=== PATIENT | female | born 1955 | race Caucasian/White ===

== ENCOUNTER 2016-07-28 10:40 | Outpatient (CLI) | payer BC ==
--- NOTE | 2016-08-01 18:17 | Mammography Report ---
DIGITAL SCREENING MAMMOGRAM: 07/28/2016 CLINICAL INDICATION: A 61-year-old with family history of breast cancer, history of bilateral implan ts for screening. COMPARISON: 07/2015, 06/2014, 06/2012, 08/2007. TECHNIQUE: Routine CC and MLO projections as well as bilateral implant displaced views were obtained of the breasts. The breasts again demonstrate scattered fibroglandular densities bilaterally. Bilateral subpectoral silicone implants are stable. No suspicious masses, clustered microcalcifications, or regions of arc hitectural distortion are identified. IMPRESSION: BENIGN FINDINGS. RECOMMENDATION: ROUTINE ANNUAL SCREENING UNLESS OTHERWISE CLINICALLY INDICATED. BIRADS CATEGORY: 2, BENIGN FINDINGS. STANDARD QUALIFYING STATEMENTS 1. This examination was reviewed with the aid of Computed-Aided Detection (CAD). 2. A negative or benign imaging report should not delay biopsy if clinically suspicious findings are present. Consider surgical consultation if warranted. More than 5% of cancers are not identified b y imaging. 3. Dense breasts may obscure an underlying neoplasm. JOB #: [id number] EXT JOB #:[id number]
== END 2016-07-28 10:41 | disposition home or self-care (01) ==
LOC: DI.S 10:40
PROVIDERS: ATTEND Family Medicine
DX: Z12.31 Encounter for screening mammogram for malignant neoplasm of breast (principal); Z80.3 Family history of malignant neoplasm of breast
CPT/HCPCS: 77067

== ENCOUNTER 2018-07-10 13:13 | Outpatient (CLI) | payer BC ==
--- NOTE | 2018-07-11 09:23 | Mammography Report ---
Reason: SCREENING MAMMO Procedure Date: 07/10/2018 Accession Number: [id number] / [id number] Procedure: CLAY - Screening Mammo Impl w/True CPT Code: FULL RESULT: EXAM: Screening Mammo Impl w/True DATE: 07/10/2018 2:17 PM CLINICAL HISTORY: Screening encounter. Family history of breast cancer in a sister at the age of 54, a maternal aunt at the age of 45 as well as a paternal aunt. History of bilateral silicone type breast implant. TECHNIQUE: (B) - Bilateral CC and MLO views were obtained. Images are obtained in standard and implant displaced technique for each view. COMPARISON: 07/28/2016 through 06/10/2012 PARENCHYMAL PATTERN: (A) - The breast(s) demonstrate(s) scattered fibroglandular densities. FINDINGS: Bilateral breast implants are redemonstrated with pericapsular calcifications, typically benign. There are no suspicious masses, calcifications, or areas of distortion. IMPRESSION: Benign findings. BI-RADS category 2. RECOMMENDATION: (ANNUAL) - Recommend routine annual screening mammography. BI-RADS CATEGORY: (2) - Benign Findings. STANDARD QUALIFYING STATEMENTS: 1. This examination was not reviewed with the aid of Computer-Aided Detection (CAD). 2. A negative or benign imaging report should not preclude biopsy if clinically suspicious findings are present. 3. Dense breasts may obscure an underlying neoplasm. 4. This examination was reviewed with the aid of 3D breast imaging (tomosynthesis).
== END 2018-07-10 13:14 | disposition home or self-care (01) ==
LOC: DI 13:13
PROVIDERS: ATTEND Family Medicine
DX: Z12.31 Encounter for screening mammogram for malignant neoplasm of breast (principal)
CPT/HCPCS: 77063; 77067

== ENCOUNTER 2019-09-23 11:39 | Outpatient (CLI) | payer BC | END 2019-09-23 11:40 | disposition home or self-care (01) | LOC: COV 11:39 | PROVIDERS: ATTEND Family Medicine | DX: M79.10 Myalgia, unspecified site (principal); R53.83 Other fatigue; R68.83 Chills (without fever) ==

== ENCOUNTER 2019-10-24 09:00 | Outpatient (CLI) | payer BC | END 2019-10-24 09:01 | disposition home or self-care (01) | LOC: COV 09:00 | PROVIDERS: ATTEND Family Medicine | DX: R50.9 Fever, unspecified (principal); M79.10 Myalgia, unspecified site; R53.83 Other fatigue; R07.0 Pain in throat; Z20.828 Contact with and (suspected) exposure to other viral communicable diseases ==

== ENCOUNTER 2021-06-29 11:37 | Outpatient (CLI) | payer BC ==
[2021-06-29 15:09] LABS: HCT - HEMATOCRIT 36.6 % (37.0-47.0); HGB - HEMOGLOBIN 12.2 g/dL (12.0-16.0); MEAN CORPUSCULAR HEMOGLOBIN 33.5 pg (27.0-31.0); MEAN CORPUSCULAR HGB CONC 33.3 g/dL (32.0-36.0); MEAN CORPUSCULAR VOLUME 100.5 fL (81.0-99.0); MEAN PLATELET VOLUME 9.6 fL (7.9-10.8); RED BLOOD COUNT 3.64 10^6/uL (4.20-5.40)
[2021-06-29 15:30] LABS: ALBUMIN/GLOBULIN RATIO 1.5 (1.0-2.2); ALKALINE PHOSPHATASE 58 IU/L (42-121); ALT ALANINE AMINOTRANSFERASE 18 IU/L (10-60); AST ASPARTATE AMINOTRANSFERASE 23 IU/L (10-42); BILIRUBIN,TOTAL 0.8 mg/dL (0.2-1.0); BUN - BLOOD UREA NITROGEN 17 mg/dL (6-20); CALCIUM 9.3 mg/dL (8.5-10.3); CARBON DIOXIDE - CO2 26 mmol/L (21-32); CHLORIDE 103 mmol/L (101-111); CHOL/HDL RATIO 3.8 (<4.4); CHOLESTEROL 259 mg/dL; CREATININE 0.6 mg/dL (0.4-1.0); GFR - MDRD 100 (>89); GLUCOSE 96 mg/dL (70-100); HDL CHOLESTEROL 69 mg/dL; LDL CHOLESTEROL,CALCULATED 169 mg/dL; LDL/HDL RATIO 2.4 (<4.4); POTASSIUM 4.1 mmol/L (3.5-5.0); SODIUM 137 mmol/L (135-145); TOTAL PROTEIN 6.7 g/dL (6.7-8.2); TRIGLYCERIDES 106 mg/dL; VLDL CHOLESTEROL 21 mg/dL
== END 2021-06-29 11:38 | disposition home or self-care (01) ==
LOC: LAB.S 11:37
PROVIDERS: ATTEND Nurse Practitioner Family
DX: F41.9 Anxiety disorder, unspecified (principal); E78.5 Hyperlipidemia, unspecified
CPT/HCPCS: 36415; 80053; 80061; 83721; 84443; 85027

== ENCOUNTER 2021-07-05 10:48 | Outpatient (CLI) | payer BC ==
--- NOTE | 2021-07-05 11:59 | DEXA Report ---
PROCEDURE: Dexa Spine and/or Hip INDICATIONS: POST MENOPAUSAL TECHNIQUE: Dual energy x-ray absorptiometry (DXA) was performed on a [employer] System. Regions measur ed are the AP Spine, femoral neck, and if needed forearm. COMPARISON: None. FINDINGS: Lumbar Spine: Bone Mineral Density 1.247 g/cm/cm,T score 0.6, normal Right Hip: Bone Mineral Density 0.885 g/cm/cm,T score -1.0, normal. Right Femoral Neck: Bone Mineral Density 0.816 g/cm/cm, T score -1.6, osteopenic. (T score greater or equal to -1.0: NORMAL) (T score from -1.1 to -2.4: OSTEOPENIA) (T score less than or equal to -2.5 to: OSTEOPOROSIS) Impression: Based on WHO criteria, the patient is osteopenic. Patients with diagnosis of osteoporosis or osteopenia should have regular bone mineral density assess ment. For those eligible for Medicare, routine testing is allowed once every 2 years. Testing frequ ency can be increased for patients who have rapidly progressing disease or for those who are receivin g medical therapy to restore bone mass. Reviewed by: Libra Fisher MD on 07/05/2021 11:58 AM PDT Approved by: Libra Fisher MD on 07/05/2021 11:58 AM PDT Station ID: [id number]
== END 2021-07-05 10:49 | disposition home or self-care (01) ==
LOC: DI 10:48
PROVIDERS: ATTEND Nurse Practitioner Family
DX: Z78.0 Asymptomatic menopausal state (principal); M85.88 Other specified disorders of bone density and structure, other site

== ENCOUNTER 2021-09-14 09:46 | Outpatient (CLI) | payer BC ==
--- NOTE | 2021-09-15 12:29 | Mammography Report ---
BILATERAL DIGITAL SCREENING MAMMOGRAM 3D/2D WITH AUGMENTATION: 09/14/2021 CLINICAL: Routine screening. Family history of breast cancer. Comparison is made to exams dated: 07/10/2018 mammogram, 07/28/2016 mammogram, 07/07/2015 mammogram, and 06/10/2014 mammogram - [facility]. There are scattered fibroglandular elements in mark th breasts. Bilateral breast implants are present and appear intact. No significant masses, calcifications, or other findings are seen in either breast. Interval increase in dense dystrophic implant capsular calcifications. IMPRESSION: NEGATIVE There is no mammographic evidence of malignancy. A 1 year screening mammogram is recommended. Based on the Tyrer Cuzick model (a risk assessment model) the patients lifetime risk is 8.8% and her 10 year risk is 4.6%. According to the ACR, ACS, and NCCN guidelines, an annual breast MRI exam bonifacio g with mammogram is recommended if the patients lifetime risk is 20% or greater. This exam was interpreted at Station ID: [id number]. NOTE: For mammograms, a report in lay terms will be sent to the patient. Approximately 15% of breast malignancies will not be visualized mammographically. In the management of a palpable breast mass, a negative mammogram must not discourage biopsy of a clinically suspicious lesion. Electronically Signed By: Cristian Moreno M.D. aty/:09/14/2021 16:29:29 ACR BI-RADS Category 1: Negative 3341F B -Scattered fibroglandular 1 Mammogram [id number] 1 year screening B
== END 2021-09-14 09:47 | disposition home or self-care (01) ==
LOC: DI.S 09:46
PROVIDERS: ATTEND Nurse Practitioner Family
DX: Z12.31 Encounter for screening mammogram for malignant neoplasm of breast (principal); Z80.3 Family history of malignant neoplasm of breast; Z98.82 Breast implant status

== ENCOUNTER 2023-09-04 08:12 | Outpatient (CLI) | payer BC ==
--- NOTE | 2023-09-04 14:16 | Ultrasound Report ---
PROCEDURE: Soft Tissue Head or Neck INDICATIONS: LESION SUBMENTAL CHIN TECHNIQUE: Soft tissue ultrasound at the submental area of concern was obtained COMPARISON: None FINDINGS: Anterior concern, there is a small hypoechoic subcutaneous nodule with internal vascularity and ovoid shape measuring 1.3 x 0.6 x 0.4 cm IMPRESSION: Small ovoid subcutaneous nodule may reflect small lymph node, and may be followed clinically. Follow- up imaging would include CT neck with contrast if/when warranted. Reviewed by: Max Ibarra MD on 09/04/2023 1:15 PM AKBRENDA Approved by: Max Ibarra MD on 09/04/2023 1:15 PM AKBRENDA Station ID: [id number]
== END 2023-09-04 08:13 | disposition home or self-care (01) ==
LOC: DI 08:12
PROVIDERS: ATTEND Internal Medicine
DX: L98.9 Disorder of the skin and subcutaneous tissue, unspecified (principal)

== ENCOUNTER 2023-11-16 13:16 | Outpatient (CLI) | payer BC ==
[2023-11-16] MEDS ORDERED: iohexoL-300 100 ML VIAL ONE (13:36)
[2023-11-16] MEDS: iohexoL-300 100 ML VIAL IVP ONE (17:51)
--- NOTE | 2023-11-16 18:44 | CT Report ---
PROCEDURE: Soft Tissue Neck W INDICATIONS: FACIAL MASS CONTRAST: omni, 100 TECHNIQUE: After the administration of intravenous contrast, 3.0 mm axial sections acquired from the sella to th e aortic arch. Additional oblique axial 3.0 mm sections acquired through the pharynx. 3 mm thick co jaz reformats were generated. For radiation dose reduction, the following was used: automated exp osure control, adjustment of mA and/or kV according to patient size. COMPARISON: Ultrasound 09/04/2023. FINDINGS: Image quality: Excellent. Lymph nodes: No enlarged lymph nodes seen throughout the neck. Vessels: Visualized vasculature appears patent. Neck spaces: The oropharynx, nasopharynx, and pharynx demonstrate no mucosal lesions. The vocal cor ds, false vocal cords, pyriform sinuses, epiglottis, vallecula, and tongue base all appear normal. E xtramucosal spaces appear unremarkable. Glands: The parotid and submandibular glands appear normal. The thyroid is normal in size and there are no findings requiring additional follow-up. Miscellaneous: Visualized brain and orbits appear normal. Lung apices appear clear. Superficial so ft tissues demonstrate mild appearance of stranding within the submental region. 4 mm soft tissue den sity is present. Bones: No suspicious bony lesions. Visualized sinuses and mastoids appear unremarkable. IMPRESSION: 4 mm soft tissue density within the submental region corresponding to ultrasound abnormality. It is t oo small to definitively characterize. This could represent a lymph node in the setting of inflammati on given mild fat stranding within this region. Interval follow-up is recommended as indicated. CLINICAL RECOMMENDATION STATEMENTS: In patients <35 years with an ITN detected on CT, MRI, or extrathyroidal ultrasound, the Committee re commends further evaluation with dedicated thyroid ultrasound if the nodule is "e1 cm and has no susp icious imaging features, and if the patient has normal life expectancy. In patients "e35 years with an ITN detected on CT, MRI, or extrathyroidal ultrasound, the Committee r ecommends further evaluation with dedicated thyroid ultrasound if the nodule is "e1.5 cm and has no s uspicious imaging features, and if the patient has normal life expectancy. (ACR, 2014) Reviewed by: Jenn Dunbar MD on 11/16/2023 6:42 PM PDT Approved by: Jenn Dunbar MD on 11/16/2023 6:42 PM PDT Station ID: [id number]
== END 2023-11-16 13:17 | disposition home or self-care (01) ==
LOC: DI 13:16
PROVIDERS: ATTEND Specialist
DX: R22.0 Localized swelling, mass and lump, head (principal); D49.2 Neoplasm of unspecified behavior of bone, soft tissue, and skin
CPT/HCPCS: 70491; Q9967